=== PATIENT | male | born 1955 | race Caucasian/White ===

== ENCOUNTER → 2021-09-15 10:54 | Outpatient (BNVA) | payer OTHER, SELFPAY | PROVIDERS: Family Provider Family Medicine Adult Medicine; PCP Emergency Medicine Emergency Medical Services; Visit Provider Internal Medicine | DX: M25.50 Pain in unspecified joint (principal); C44.90 Unspecified malignant neoplasm of skin, unspecified; M17.10 Unilateral primary osteoarthritis, unspecified knee; M19.019 Primary osteoarthritis, unspecified shoulder; Z11.59 Encounter for screening for other viral diseases; Z11.1 Encounter for screening for respiratory tuberculosis; Z87.828 Personal history of other (healed) physical injury and trauma; Z79.899 Other long term (current) drug therapy; Z87.891 Personal history of nicotine dependence | CPT/HCPCS: 99204; 99214 ==

== ENCOUNTER 2021-09-15 12:39 | Outpatient (CLI) | payer OTHER, SELFPAY ==
--- NOTE | 2021-09-15 12:51 | XR_ITS ---
WS: [email or web address] Sacroiliac joints, 3 views, 09/15/2021 Clinical Data: L40.9 - Psoriasis, unspecified Comparison: None. Findings: The SI joints are normal in width. No erosion, sclerosis or destruction is seen. There are no fractur es or dislocations. The adjacent visualized pelvis and hips are unremarkable. XR/XR sacroiliac jts m 3V [id number] Impression: Negative SI joints.
--- NOTE | 2021-09-15 12:51 | XR_ITS ---
WS: [email or web address] Right hand, 2 views, 09/15/2021 Clinical Data: M19.90 - Unspecified osteoarthritis, unspecified site Comparison: None. Findings: No fractures or dislocations are seen. The soft tissues are unremarkable. There is minima l osteoarthritis at the base of the right first metacarpal articulation with the trapezium. XR/XR hand RT 2V [id number] Impression: Minimal osteoarthritis at the base of the right first metacarpal.
--- NOTE | 2021-09-15 12:51 | XR_ITS ---
WS: [email or web address] Left hand, 2 views, 09/15/2021 Clinical Data: M19.90 - Unspecified osteoarthritis, unspecified site Comparison: None. Findings: No fractures or dislocations are seen. The soft tissues are unremarkable. The joint spaces are normal XR/XR hand LT 2V [id number] Impression: Negative left hand.
[2021-09-15 13:37] LABS: Basophils # 0.1 10^3/uL (0.0-0.1); Eosinophils # 0.1 10^3/uL (0.0-0.8); Eosinophils % 1.5 %; Hematocrit 46.4 % (42.0-52.0); Hemoglobin 15.5 g/dL (11.7-16.6); Lymphocytes # 1.6 10^3/uL (0.8-4.8); Lymphocytes % 27.1 %; Mean Corpuscular HGB Conc 33.4 g/dL (30.0-36.0); Mean Corpuscular Hemoglobin 29.1 pg (28.0-34.0); Mean Corpuscular Volume 87.2 fl (80-94); Mean Platelet Volume 8.4 fL (7.4-10.4); Monocytes # 0.6 10^3/uL (0.2-0.9); Monocytes % 10.3 %; Neutrophils # 3.48 10^3/uL (1.8-7.7); Neutrophils % 59.8 %; Nucleated Red Blood Cells % 0 %; Platelet Count 443 10^3/cmm (130-400); Red Blood Count 5.32 10^6/uL (4.1-5.3); Red Cell Distribution Width 12.6 % (12.1-15.1); White Blood Count 5.8 10^3/uL (4.0-10.0)
[2021-09-15 14:19] LABS: Calcium 9.6 mg/dL (8.5-10.5)
[2021-09-15 14:38] LABS: 25 Hydroxy Vitamin D 51 ng/mL (30-100); Alanine Aminotransferase 22 U/L (0-41); Albumin Level 4.2 g/dL (3.5-5.2); Alkaline Phosphatase 109 IU/L (40-130); Anion Gap 12.9 (5-19); Aspartate Amino Transferase 21 U/L (0-40); Blood Urea Nitrogen 13 mg/dL (8-23); Calcium 9.6 mg/dL (8.5-10.5); Carbon Dioxide 27 mmol/L (22-29); Chloride 104 mmol/L (98-107); Creatine Phosphokinase 207 U/L (39-308); Ferritin 230 ng/mL (30-400); Globulin 3.2 g/dL (1.3-4.6); Glomerular Filtration Rate 67.2 mL/min (90-130); Glucose 82 mg/dL (65-115); Iron 63 ug/dL (59-158); Magnesium 2.3 mg/dL (1.7-2.3); Osmolality Calculated 289 mOsm/kg (285-295); Phosphorus 3.7 mg/dL (2.5-4.5); Potassium 3.9 mmol/L (3.5-5.1); Sodium 140 mmol/L (136-145); Thyroid Stimulating Hormone 1.27 uIU/mL (0.27-4.20); Total Bilirubin 0.3 mg/dL (0.15-1.2); Total Protein 7.4 g/dL (6.6-8.7); Uric Acid 4.3 mg/dL (3.4-7.0)
[2021-09-15 14:51] LABS: Hepatitis B Core AB, Total Non-Reactive (Nonreactive); Hepatitis B Surface Antigen Non-Reactive (Nonreactive); Hepatitis C Virus Antibody Non-Reactive (Nonreactive)
[2021-09-15 16:32] LABS: Free T4 Free Thyroxine 1.16 ng/dL (0.82-1.77)
[2021-09-15 16:53] LABS: CKMB 3.7 ng/mL (0-10.4)
[2021-09-16 16:23] LABS: Cyclic Citrullinated Peptide <16 UNITS
[2021-09-16 19:23] LABS: Erythrocyte Sedimentation Rate 36 mm/hr (0-10)
[2021-09-17 10:06] LABS: HLA-B27 POSITIVE (NEGATIVE)
[2021-09-17 12:17] LABS: COMPLEMENT COMPONENT C3C 131 mg/dL (82-185); COMPLEMENT COMPONENT C4C 31 mg/dL (15-53)
[2021-09-17 14:47] LABS: COMPLEMENT, TOTAL (CH50) >60 U/mL (31-60)
[2021-09-17 16:42] LABS: Quantiferon Mitogen >10.00 IU/mL; Quantiferon Nil 0.02 IU/mL; Quantiferon TB Gold NEGATIVE (NEGATIVE)
[2021-09-20 14:03] LABS: Immunoglobulin A 273 mg/dL (70-320)
[2021-09-20 15:56] LABS: THYROID PEROXIDASE ANTIBODIES 1 IU/mL (<9)
[2021-09-21 15:58] LABS: CENTROMERE B ANTIBODY <1.0 NEG AI (<1.0 NEG); JO-1 ANTIBODY <1.0 NEG AI (<1.0 NEG); RNP ANTIBODY <1.0 NEG AI (<1.0 NEG); SCL-70 ANTIBODY <1.0 NEG AI (<1.0 NEG); SJOGREN'S ANTIBODY (SS-A) <1.0 NEG AI (<1.0 NEG); SM ANTIBODY <1.0 NEG AI (<1.0 NEG); SS-B <1.0 NEG AI (<1.0 NEG)
[2021-09-21 16:13] LABS: ANA SCREEN, IFA NEGATIVE (NEGATIVE)
[2021-09-23 15:13] LABS: DNA AB (DS) CRITHIDIA,IFA NEGATIVE (NEGATIVE)
--- NOTE | 2021-11-09 07:06 | MR_ITS ---
WS: [email or web address] MRI LEFT SHOULDER HISTORY: Patient fell 5 months ago. LEFT hand numbness and pain. COMPARISON: None available. TECHNIQUE: Multiplanar sequences of the shoulder joint are submitted. Mild to moderate AC joint arthritis. Hypertrophic bone and soft tissue changes with mild encroachment upon the supraspinatus. Very slight encroachment and subacromial impingement upon the supraspinatus. There is a small amount of fluid extending through the AC joint and a small amount of fluid in the s ubacromial and subdeltoid bursa. No os acromion. Biceps tendon remains in the bicipital groove. No muscle atrophy. There is significant thickening and increased signal involving the distal supraspi natus tendon and also the overlapping interdigitations of the adjacent infraspinatus tendon. No tear is identified. There is mild encroachment and deformity by AC joint disease on the supraspinatus tend on with a small amount of edema in the is adjacent muscle. Extensive intrasubstance degeneration and increased signal within the superior labrum. Abnormal shape and signal in the anterior labrum. Intras ubstance degeneration in the posterior labrum. Mild narrowing of the glenohumeral joint. No fractures or marrow edema.
== END 2021-09-15 12:40 | disposition home or self-care (01) ==
LOC: RAD 12:48
PROVIDERS: PCP Emergency Medicine Emergency Medical Services; Visit Provider Internal Medicine
DX: C44.90 Unspecified malignant neoplasm of skin, unspecified (principal); M19.90 Unspecified osteoarthritis, unspecified site; M25.50 Pain in unspecified joint; L40.9 Psoriasis, unspecified; Z79.899 Other long term (current) drug therapy; M45.0 Ankylosing spondylitis of multiple sites in spine; Z11.59 Encounter for screening for other viral diseases; Z11.1 Encounter for screening for respiratory tuberculosis
CPT/HCPCS: 36415; 72202; 73120; 80053; 82306; 82310; 82550; 82553; 82728; 82784; 83516; 83540; 83735; 83970; 84100; 84439; 84443; 84550; 85025; 85651; 86140; 86160; 86162; 86200; 86235; 86255; 86376; 86431; 86480; 86704; 86803; 86812; 87340

== ENCOUNTER → 2021-09-22 09:09 | Outpatient (BNVA) | payer OTHER, SELFPAY | PROVIDERS: PCP Emergency Medicine Emergency Medical Services; Visit Provider Internal Medicine | DX: M25.50 Pain in unspecified joint (principal); M17.10 Unilateral primary osteoarthritis, unspecified knee; C44.90 Unspecified malignant neoplasm of skin, unspecified; G62.9 Polyneuropathy, unspecified; R70.0 Elevated erythrocyte sedimentation rate; Z15.89 Genetic susceptibility to other disease | CPT/HCPCS: 99214 ==

== ENCOUNTER 2021-11-09 06:38 | Outpatient (CLI) | payer OTHER, SELFPAY ==
--- NOTE | 2021-11-09 07:08 | MR_ITS ---
WS: [email or web address] MRI LEFT SHOULDER HISTORY: Patient fell 5 months ago. LEFT hand numbness and pain. COMPARISON: None available. TECHNIQUE: Multiplanar sequences of the shoulder joint are submitted. Mild to moderate AC joint arthritis. Hypertrophic bone and soft tissue changes with mild encroachment upon the supraspinatus. Very slight encroachment and subacromial impingement upon the supraspinatus. There is a small amount of fluid extending through the AC joint and a small amount of fluid in the s ubacromial and subdeltoid bursa. No os acromion. Biceps tendon remains in the bicipital groove. No muscle atrophy. There is significant thickening and increased signal involving the distal supraspi natus tendon and also the overlapping interdigitations of the adjacent infraspinatus tendon. No tear is identified. There is mild encroachment and deformity by AC joint disease on the supraspinatus tend on with a small amount of edema in the is adjacent muscle. Extensive intrasubstance degeneration and increased signal within the superior labrum. Abnormal shape and signal in the anterior labrum. Intras ubstance degeneration in the posterior labrum. Mild narrowing of the glenohumeral joint. No fractures or marrow edema. MR/MR shoulder LT wo con* [id number] IMPRESSION: 1. Moderate tendinopathy in the distal supraspinatus and adjacent interdigitat ing infraspinatus tendons. No tear identified. 2. Multiple moderate AC joint arthritis with encroachment upon the supraspinat us and mild subacromial impingement. 3. There is a small amount of edema within the tendon and the supraspinatus mu scle at the site of the AC joint encroachment. 4. Anterior labral tear. Additional increased signal in the posterior and infe rior labrum appears more degenerative.
--- NOTE | 2021-11-09 07:15 | MR_ITS ---
WS: [email or web address] MRI RIGHT KNEE HISTORY: R70.0 - Elevated erythrocyte sedimentation rate COMPARISON: None available. Anterior cruciate ligament: Prior ACL repair. There is artifact through the central knee along the AC L. There is mild vertical orientation of the ACL. Cannot identify a completely intact ACL but some of the fibers are present. Posterior cruciate ligament: Thinned and displaced posterior. Medial collateral ligament: Displaced from the joint line by extruded meniscus. There is increased T2 signal on both sides of the MCL. No complete tear. Posterior lateral corner structures: Posterior lateral corner structures are being displaced from the joint line by extruded meniscus and osteophytes. 5 mm cyst at the joint line inseparable from the ex truded meniscus. 5 mm cyst is probably a meniscal cyst. Medial menisci: Abnormal meniscus. Posterior horn is not identified and completely macerated. Abnorma l signal with air irregular shaped in the anterior horn. Lateral meniscus: Small caliber with intrasubstance degeneration. Towards the meniscal root of the po sterior horn there is increased T2 signal. Extensor mechanism: Distal quadriceps tendon and patellar tendons are intact. Fluid and soft tissue: Moderate joint effusion. No Guillen's cyst. Osseous and articular structures: Patellofemoral compartment: Osteophytes extend superior and inferior from the patella. No marrow leon a or fracture. Medial compartment: Severe narrowing medial compartment with complete loss of cartilage. Osteophytes and subchondral marrow edema. Meniscus is extruded and there are large osteophytes from the medial sandra int line. Lateral compartment: Moderate narrowing of the lateral compartment with loss of cartilage, osteophyte s and extruded meniscus. Small amount of marrow edema along the tibial plateau. MR/MR knee RT wo con* [id number] IMPRESSION: 1. Severe medial and lateral compartment joint internal derangement with loss of cartilage, osteophytes and abnormal menisci. Most significant meniscal tears are in the medial compartment and the posterior horn of the lateral compartmen t towards the meniscal root. 2. Prior ACL repair. Vertical orientation of the ACL but at least partially in tact. 3. Moderate-sized suprapatellar joint effusion. 4. Mild osteoarthritis at the patellofemoral joint space. 5. MCL and posterior lateral corner structures are being displaced from the sandra int line by osteophytes and meniscal extrusion. 6. 5 mm lateral meniscal cyst.
== END 2021-11-09 06:39 | disposition home or self-care (01) ==
PROVIDERS: PCP Emergency Medicine Emergency Medical Services; Visit Provider Internal Medicine
DX: M17.10 Unilateral primary osteoarthritis, unspecified knee (principal); R70.0 Elevated erythrocyte sedimentation rate; M19.90 Unspecified osteoarthritis, unspecified site
CPT/HCPCS: 73221; 73721

== ENCOUNTER → 2021-11-19 08:10 | Outpatient (BNVA) | payer OTHER, SELFPAY | PROVIDERS: PCP Emergency Medicine Emergency Medical Services; Visit Provider Internal Medicine | DX: Z15.89 Genetic susceptibility to other disease (principal); M25.50 Pain in unspecified joint; Z79.899 Other long term (current) drug therapy | CPT/HCPCS: 36415; 80053; 85025; 85651; 86140 ==

== ENCOUNTER → 2021-11-22 11:26 | Outpatient (BNVA) | payer OTHER, SELFPAY | PROVIDERS: PCP Emergency Medicine Emergency Medical Services; Visit Provider Internal Medicine | DX: Z15.89 Genetic susceptibility to other disease (principal); M25.50 Pain in unspecified joint; Z79.899 Other long term (current) drug therapy; C44.90 Unspecified malignant neoplasm of skin, unspecified | CPT/HCPCS: 99214 ==

== ENCOUNTER → 2022-03-07 08:53 | Outpatient (BNVA) | payer OTHER, SELFPAY | PROVIDERS: PCP Emergency Medicine Emergency Medical Services; Visit Provider Internal Medicine | DX: Z15.89 Genetic susceptibility to other disease (principal); R70.0 Elevated erythrocyte sedimentation rate; M19.90 Unspecified osteoarthritis, unspecified site; G62.9 Polyneuropathy, unspecified; R73.9 Hyperglycemia, unspecified; C44.90 Unspecified malignant neoplasm of skin, unspecified; Z87.891 Personal history of nicotine dependence | CPT/HCPCS: 99214 ==

== ENCOUNTER 2022-05-18 10:48 | Emergency (ER) | payer OTHER, MEDICARE, SELFPAY ==
[2022-05-18 11:10] VITALS: BP 141/80; PULSE 69; RESP 18; TEMP 36.7; O2SAT 96
--- NOTE | 2022-05-18 11:35 | W.ED.MALEGU ---
HPI - Male Genitourinary General: Chief complaint: Urogenital-Male Stated complaint: Catheter issues Time Seen by Provider: 05/18/22 11:25 Source: patient Mode of arrival: ambulatory Limitations: no limitations History of Present Illness: Patient is a very nice 67-year-old male who presents to ED along with his for concerns of difficulty with urinating. Patient states he has had difficulty urinating ever since following his total knee replacement surgery 5 days ago. Patient states he is having urinary urgency but only able to void small amounts at a time. He denies dysuria. He states he was seen at the [facility] yesterday and had a post void residual bladder scan. He was called today and told he needed to come to the ED for a Beverly catheter placement. No flank pain. No fevers. No complaints in regards to his recent surgery. He is taking oxycodone/tramadol for the post op pain. No history of BPH. MD Complaint: other (urinary retention) Onset (ago): day(s) Duration: constant Location: abdomen (suprapubic) Relieving factors: urination Context: new medication (pain meds) and recent surgery Associated symptoms: Deny dysuria, hematuria, nausea or vomiting Review of Systems Const: Denies: fever(s), chills, body aches, fatigue or malaise Card: Denies: chest pain Resp: Denies: dyspnea GI: Denies: abdominal pain, nausea, vomiting, diarrhea or change in bowel habits : Reports: difficulty urinating, urinary frequency, urinary urgency and urinary hesitancy; Denies: flank pain, dysuria, urinary dribbling, hematuria, genital pain or testicular pain Musc: Reports: joint pain (recent R TKA; pain is at baseline) and other (normal post op swelling to R knee, RLE); Denies: neck pain or back pain Skin/Breast: Denies: rash Neuro: Denies: headache(s), numbness in extremities, weakness in extremities or sensory changes PFSH ED PFSH: Family History Mother Cancer Diabetes Hyperlipidemia Hypertension Rheumatoid arthritis Heart attack Sister Cancer Diabetes Hyperlipidemia Hypertension Rheumatoid arthritis Heart attack Father Cancer Unknown No problems noted. Brother Hypertension Rheumatoid arthritis Denies family history of Lupus Stroke Social History (Reviewed 05/18/22 @ 11:47 by NIYA Urena Smoking and tobacco status: former smoker Alcohol intake: current Alcohol intake frequency: holidays/special occasions only History of recent travel: No Physical Exam Const: COMMON NORMALS: no acute distress, average body habitus, patient oriented x3, no limitations, healthy appearing, alert and well nourished GENERAL APPEARANCE: cooperative ORIENTATION/CONSCIOUSNESS: Yes awake, Yes oriented to person, Yes oriented to place and Yes oriented to time Resp: COMMON NORMALS: normal respiratory effort and clear to auscultation bilaterally AUSCULTATION: clear to auscultation bilaterally Cardio: COMMON NORMALS: regular rate and regular rhythm RATE: regular rate RHYTHM: regular rhythm GI: COMMON NORMALS: Normal to inspection, nondistended, normoactive bowel sounds present, Soft to palpation, No hepatosplenomegaly present and no masses INSPECTION: Yes normal to inspection AUSCULTATION: Yes normoactive bowel sounds PALPATION: Yes Soft to palpation, Yes Tenderness to palpation present (GI) (suprapubic), No Guarding due to palpation present (GI), No Rigid due to palpation and Yes No hepatosplenomegaly present : COMMON NORMALS: Yes no CVA tenderness BLADDER/KIDNEY EXAM: Yes no CVA tenderness Back/Pelvis: COMMON NORMALS: no CVA tenderness, thoracic and lumbar spine normal to inspection, no thoracic nor lumbar tenderness and thoraco-lumbar ROM normal Extremity: COMMON NORMALS: normal to inspection Neuro: COMMON NORMALS: patient oriented x3, moves all extremities, no focal motor deficits, no sensory deficits noted and gait normal SENSORIUM/ORIENTATION: Yes alert, Yes oriented to person, Yes oriented to place and Yes oriented to time Skin: COMMON NORMALS: no rashes or lesions noted GENERAL SKIN EXAM: no rashes or lesions noted Course Vital Signs: Vital signs: Vital Signs Temperature 98.0 F 05/18/22 11:10 Pulse Rate 69 05/18/22 11:10 Respiratory Rate 18 05/18/22 11:10 Blood Pressure 141/80 05/18/22 11:10 Pulse Oximetry 96 05/18/22 11:10 [facility] - Male Medical Decision Making Post void residual here close to 300ml and given his symptoms I think beverly placement is reasonable. After insertion over 400ml immediately drained. He states he feels better. Vitals are normal. Labs non-concerning. UA has some nitrates but is leuk, WBC, bacteria negative. Will culture. I think urinary retention is secondary to recent anesthesia and opiate use. Will have him follow up with urology next week and hopefully by that time he will have started to taper off of his opiate medication. Return to ED precautions given. Lab Data : 05/18/22 11:50 05/18/22 11:50 Laboratory Results WBC 8.7 10^3/uL (4.0-10.0) 05/18/22 11:50 RBC 5.34 10^6/uL (4.1-5.3) H 05/18/22 11:50 Hgb 15.3 g/dL (11.7-16.6) 05/18/22 11:50 Hct 44.8 % (42.0-52.0) 05/18/22 11:50 MCV 83.9 fl (80-94) 05/18/22 11:50 MCH 28.7 pg (28.0-34.0) 05/18/22 11:50 MCHC 34.2 g/dL (30.0-36.0) 05/18/22 11:50 RDW 12.9 % (12.1-15.1) 05/18/22 11:50 Plt Count 488 10^3/cmm (130-400) H 05/18/22 11:50 MPV 8.7 fL (7.4-10.4) 05/18/22 11:50 Neut % (Auto) 69.6 % 05/18/22 11:50 Lymph % (Auto) 17.8 % 05/18/22 11:50 Tripp % (Auto) 9.1 % 05/18/22 11:50 Eos % (Auto) 1.8 % 05/18/22 11:50 Baso % (Auto) 0.5 % 05/18/22 11:50 Neut # (Auto) 6.04 10^3/uL (1.8-7.7) 05/18/22 11:50 Lymph # (Auto) 1.5 10^3/uL (0.8-4.8) 05/18/22 11:50 Tripp # (Auto) 0.8 10^3/uL (0.2-0.9) 05/18/22 11:50 Eos # (Auto) 0.2 10^3/uL (0.0-0.8) 05/18/22 11:50 Baso # (Auto) 0.0 10^3/uL (0.0-0.1) 05/18/22 11:50 Nucleated RBC % (auto) 0 % 05/18/22 11:50 Nucleated RBCs # 0.0 /100WBC 05/18/22 11:50 Sodium 138 mmol/L (136-145) 05/18/22 11:50 Potassium 4.4 mmol/L (3.5-5.1) 05/18/22 11:50 Chloride 100 mmol/L (98-107) 05/18/22 11:50 Carbon Dioxide 27 mmol/L (22-29) 05/18/22 11:50 Anion Gap 15.4 (5-19) 05/18/22 11:50 BUN 18 mg/dL (8-23) 05/18/22 11:50 Creatinine 1.1 mg/dL (0.7-1.2) 05/18/22 11:50 GFR Calculation 67.0 mL/min (90-130) L 05/18/22 11:50 Glucose 102 mg/dL (65-115) 05/18/22 11:50 Calculated Osmolality 288 mOsm/kg (285-295) 05/18/22 11:50 Calcium 9.5 mg/dL (8.5-10.5) 05/18/22 11:50 Total Bilirubin 0.5 mg/dL (0.15-1.2) 05/18/22 11:50 AST 23 U/L (0-40) 05/18/22 11:50 ALT 19 U/L (0-41) 05/18/22 11:50 Alkaline Phosphatase 125 IU/L (40-130) 05/18/22 11:50 Total Protein 7.4 g/dL (6.6-8.7) 05/18/22 11:50 Albumin 4.4 g/dL (3.5-5.2) 05/18/22 11:50 Globulin 3.0 g/dL (1.3-4.6) 05/18/22 11:50 Urine Color Yellow (Yellow) 05/18/22 11:50 Urine Appearance Clear (CLEAR) 05/18/22 11:50 Urine pH 6.5 (5-7) 05/18/22 11:50 Ur Specific [place] 1.010 (1.005-1.030) 05/18/22 11:50 Urine Protein 1+ (Negative) H 05/18/22 11:50 Urine Glucose (UA) 4+ (Normal) H 05/18/22 11:50 Urine Ketones Negative (Negative) 05/18/22 11:50 Urine Blood Neg (Negative) 05/18/22 11:50 Urine Nitrate Positive (Negative) H 05/18/22 11:50 Urine Bilirubin 1+ (Negative) H 05/18/22 11:50 Urine Urobilinogen Norm mg/dL (Negative) 05/18/22 11:50 Ur Leukocyte Esterase Negative (Negative) 05/18/22 11:50 Urine RBC 0-4 /hpf (0-2) H 05/18/22 11:50 Urine WBC None /hpf (0-5) 05/18/22 11:50 Ur Squamous Epith Cells None /hpf (0-5) 05/18/22 11:50 Amorphous Sediment Not Reportable 05/18/22 11:50 Urine Bacteria None /hpf (NONE) 05/18/22 11:50 Discharge Plan Discharge Patient Disposition: Home Clinical Impression: Acute urinary retention Condition: Stable Prescriptions: No Action metoprolol succinate 100 mg tablet extended release 24 hr 100 mg PO DAILY 0RF spironolactone 25 mg tablet 25 mg PO DAILY 0RF montelukast 10 mg tablet 10 mg PO DAILY 0RF atorvastatin 20 mg tablet 20 mg PO DAILY 0RF insulin glargine 100 unit/mL (3 mL) insulin pen 24 unit SUBCUT QAM 0RF empagliflozin 25 mg tablet 25 mg PO DAILY 0RF amlodipine 10 mg tablet 10 mg PO DAILY 0RF semaglutide (weight loss) 1 mg/0.5 mL pen injector 1 mg SUBCUT Q7D 0RF celecoxib 200 mg capsule 200 mg PO BID 0RF meloxicam 15 mg Tablet 15 mg PO DAILY 0RF Aspir-81 81 mg Tablet,Delayed Release (Dr/Ec) 81 mg PO DAILY 0RF famotidine 20 mg Tablet 20 mg PO BID 0RF gabapentin 300 mg Capsule 300 mg PO TID 0RF ibuprofen 600 mg Tablet 600 mg PO TID PRN (Reason: Pain) 0RF albuterol sulfate 90 mcg/actuation Hfa Aerosol Inhaler 2 puff INHALATION Q6H PRN (Reason: Shortness Of Breath) 0RF finasteride 5 mg Tablet 5 mg PO DAILY 0RF Tylenol 325 mg Tablet 325 mg PO QID PRN (Reason: Pain) 0RF Discharge Orders: Discharge ED (Routine); Ordered 05/18/22 Ordered By: Geovanna Harper Referrals: Gregg Boone MD [Physician] - Ankit Lara DO [Primary Care Provider] - Patient Instructions: Urinary Retention in Men (ED), Beverly Catheter Placement and Care (ED) Coding Level of Care Code ED Application Support Administrator for Chg Fwd Exam Comprehensive
[2022-05-18 11:57] LABS: Basophils % 0.5 %; Eosinophils # 0.2 10^3/uL (0.0-0.8); Eosinophils % 1.8 %; Hematocrit 44.8 % (42.0-52.0); Hemoglobin 15.3 g/dL (11.7-16.6); Lymphocytes # 1.5 10^3/uL (0.8-4.8); Lymphocytes % 17.8 %; Mean Corpuscular HGB Conc 34.2 g/dL (30.0-36.0); Mean Corpuscular Hemoglobin 28.7 pg (28.0-34.0); Mean Corpuscular Volume 83.9 fl (80-94); Mean Platelet Volume 8.7 fL (7.4-10.4); Monocytes # 0.8 10^3/uL (0.2-0.9); Monocytes % 9.1 %; Neutrophils # 6.04 10^3/uL (1.8-7.7); Neutrophils % 69.6 %; Nucleated Red Blood Cells % 0 %; Platelet Count 488 10^3/cmm (130-400); Red Blood Count 5.34 10^6/uL (4.1-5.3); Red Cell Distribution Width 12.9 % (12.1-15.1); White Blood Count 8.7 10^3/uL (4.0-10.0)
[2022-05-18 12:19] LABS: Alanine Aminotransferase 19 U/L (0-41); Albumin Level 4.4 g/dL (3.5-5.2); Alkaline Phosphatase 125 IU/L (40-130); Anion Gap 15.4 (5-19); Aspartate Amino Transferase 23 U/L (0-40); Blood Urea Nitrogen 18 mg/dL (8-23); Calcium 9.5 mg/dL (8.5-10.5); Carbon Dioxide 27 mmol/L (22-29); Chloride 100 mmol/L (98-107); Glucose 102 mg/dL (65-115); Osmolality Calculated 288 mOsm/kg (285-295); Potassium 4.4 mmol/L (3.5-5.1); Sodium 138 mmol/L (136-145); Total Bilirubin 0.5 mg/dL (0.15-1.2); Total Protein 7.4 g/dL (6.6-8.7)
[2022-05-18 12:36] LABS: Add Urine Microscopic? YES; Bilirubin Urine 1+ (Negative); Blood Urine Neg (Negative); Glucose Urine UA 4+ (Normal); Ketones Urine Negative (Negative); Leukocyte Esterase Urine Negative (Negative); Nitrate Urine Positive (Negative); Protein Urine 1+ (Negative); Urine Appearance Clear (CLEAR); Urine Color Yellow (Yellow); Urobilinogen Urine Norm (Negative); pH Urine 6.5 (5-7)
[2022-05-18 12:37] LABS: Add Urine Culture? No; RBC Urine 0-4 /hpf (0-2)
--- NOTE | 2022-05-20 08:24 | DCPLANNER ---
Addendum entered by Lauren Mcarthur 05/31/22 10:04: manager community outreach was sent the following message from the urology front office regarding follow up appointment: Pt. stated he is going to the [facility] Original Note: manager community outreach had message to schedule a follow up appointment for patient with urology. manager community outreach sent patients information to the front office staff at urology. Patients information will be printed and reviewed. Clinic will call patient with appointment information.
== END 2022-05-18 14:13 | disposition home or self-care (01) ==
PROVIDERS: Emergency Provider Physician Assistant; PCP Emergency Medicine Emergency Medical Services
DX: R33.9 Retention of urine, unspecified (principal); Z79.4 Long term (current) use of insulin; Z79.82 Long term (current) use of aspirin; Z87.891 Personal history of nicotine dependence
CPT/HCPCS: 51702; 51798; 80053; 81001; 85025; 87086; 99283

== ENCOUNTER 2023-02-18 09:32 | Outpatient (CLI) | payer OTHER, MEDICARE, SELFPAY ==
--- NOTE | 2023-02-18 10:26 | US_ITS ---
WS: [email or web address] RENAL ULTRASOUND HISTORY: Kidney stones COMPARISON: None available. TECHNIQUE: 2-D and color Doppler imaging of the kidney submitted. Right kidney: 11.3 cm x 5.6 cm x 5.3 cm. Cortex: 1.2 cm Normal size kidney with no hydronephrosis. There are a few very tiny echogenic foci in the mid to upp er renal pelvis which may be small nonobstructing calcifications. No solid mass. Left kidney: 11.3 cm x 5.6 cm x 5.6 cm. Cortex: 6 1.3 cm Normal echogenicity with no hydronephrosis or mass. Aorta: Normal. Urinary Bladder: Normal distention. US/US renal BI* [id number] IMPRESSION: 1. No hydronephrosis or solid renal mass. 2. Very tiny echogenic foci in the RIGHT renal pelvis. Consistent with nonobst ructing nephrolithiasis.
== END 2023-02-18 09:33 | disposition home or self-care (01) ==
PROVIDERS: PCP Emergency Medicine Emergency Medical Services; Visit Provider Radiology Radiation Oncology
DX: N20.0 Calculus of kidney (principal)
CPT/HCPCS: 76770

== ENCOUNTER → 2024-08-01 13:15 | Outpatient (BNVA) | payer OTHER, SELFPAY | PROVIDERS: PCP Emergency Medicine Emergency Medical Services; Visit Provider Specialist | DX: G56.03 Carpal tunnel syndrome, bilateral upper limbs (principal) | CPT/HCPCS: 95910 ==

== ENCOUNTER 2024-08-14 07:13 | Outpatient (CLI) | payer OTHER, SELFPAY ==
--- NOTE | 2024-08-14 07:21 | MR_ITS ---
WS: [email or web address] MRI LUMBAR SPINE PRE AND POST CONTRAST HISTORY: CONTINUED BACK PAIN/?HEMANGIOMA L4 COMPARISON: None available. TECHNIQUE: Sagittal and axial multisequence imaging is submitted. Postcontrast MultiHance 19 mL. Cervical fusion at C5-6. There are few small disc protrusions in the thoracic spine. Mild curvature lumbar spine. Marrow edema in L3 and L4. Marrow edema extends into the facet joints gr eatest on the RIGHT. Mild anterior wedging of the L1 3 most likely indicating acute injury. Degenerative disc disease is most significant at L3-4. Conus terminates normally at L1-2 disc level. L1-L2: Mild annular disc bulging encroaching upon the thecal sac and subarticular recesses. Mild bila teral foraminal stenosis. L2-L3: Diffuse annular disc bulging encroaching upon the ventral thecal sac and subarticular recesses . Encroachment upon the traversing L3 nerve roots. Ligamentum flavum and facet arthritis. Moderate si ze LEFT foraminal disc protrusion effacing neural foraminal fat and contacting the exiting LEFT L2 ne rve root. Smaller RIGHT foraminal disc protrusion. Mild central with bilateral subarticular recess an d RIGHT foraminal stenosis. Severe LEFT foraminal stenosis. L3-L4: Marked annular disc bulging with severe ligamentum flavum and facet arthritis. Severe central canal stenosis and subarticular recess stenosis. Disc protrusions and osteophytes extend into the for delia. Severe central, bilateral subarticular recess and foraminal stenosis. L4-L5: Marked annular disc bulging with ligamentum flavum and facet arthritis. Thecal sac is being de formed. There is significant encroachment upon the subarticular recesses and foramina. Bilateral fora юлия disc protrusions, RIGHT greater than LEFT. Severe central, bilateral subarticular recess and fo raminal stenosis. L5-S1: Diffuse annular disc bulging with encroachment upon the S1 nerve roots. Moderate bilateral for aminal stenosis. There is enhancement within the L3 and L4 vertebral bodies at the site of the marrow edema. This may be reactive marrow edema. Enhancement can be seen with recent trauma or trabecular injury. Pattern is less likely neoplastic. There is no fluid in the disc. Low signal focus in L3 corresponds to a bone island seen on a prior CT. No prevertebral edema seen on the sagittal STIR precontrast sequence. MR/MR lumbar spine wo/w con [id number] IMPRESSION: 1. Marrow edema with enhancement in L3 and L4. Enhancement can be seen with ac opal inflammatory/process or recent injury or neoplastic. No prevertebral edema. There is no fluid along the disc space. Likely reactive marrow edema due to re cent injury. There is very slight anterior wedging of L3 which may indicate a m ild compression deformity which is acute. 2. L3-4: Severe central, subarticular recess and bilateral foraminal stenosis due to disc and osteophyte disease. Disc protrusions extend into the foramina w ith significant contact on the nerve roots. 3. L4-5: Severe central, bilateral subarticular recess and foraminal stenosis as described above. 4. L5-S1: Moderate bilateral foraminal stenosis. 5. L2-3: Disc encroachment upon the L3 nerve roots. Mild central with bilatera l subarticular recess and RIGHT foraminal stenosis. Severe LEFT foraminal steno sis due to a disc protrusion.
[2024-08-14] MEDS: gadobenate dimeglumine 20 mL vial 19 ML IV (08:07)
== END 2024-08-14 07:14 | disposition home or self-care (01) ==
PROVIDERS: PCP Emergency Medicine Emergency Medical Services; Visit Provider Nurse Practitioner
DX: M48.061 Spinal stenosis, lumbar region without neurogenic claudication (principal); Z98.1 Arthrodesis status; M47.816 Spondylosis without myelopathy or radiculopathy, lumbar region
CPT/HCPCS: 72158; A9577